=== PATIENT | female | born 1990 | race Caucasian/White ===

== ENCOUNTER 2017-06-29 18:24 | Emergency (ER) | payer OTHER ==
--- NOTE | 2017-06-29 19:23 | EDPHY ---
H & P Time Seen by Provider: 06/29/17 18:55 HPI/ROS: CHIEF COMPLAINT: History of tick bite, myalgias, rash HISTORY OF PRESENT ILLNESS: 27-year-old female presents to the emergency department by private vehicle complaining of myalgias, rash to her lower extremities and swollen fingers. The patient states on 06/12/2017 she was bit by a tick to the left side of her neck. He she removed the tick on her own. Over last few days she has noticed generalized myalgias, swollen fingers and rash. She states the rash initially started on her feet and has progressed ascending up to about mid thighs. No fevers or chills. No nausea or vomiting. No headache. No chest pain or difficulty breathing. REVIEW OF SYSTEMS: Constitutional: No fever, no chills. Eyes: No double or blurry vision. ENT: No sore throat. Respiratory: No cough, no shortness of breath. Cardiac: No chest pain. Gastrointestinal: No abdominal pain, vomiting or diarrhea. Genitourinary: No dysuria. Musculoskeletal: No neck or back pain. Skin: Rash as above Neurological: No headache. 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 Afebrile. Nontoxic appearing. Eyes: Pupils equal and round. Extraocular motions are all intact. ENT: Mouth: Mucous membranes moist. Respiratory: No wheezing, rhonchi, or rales, lungs are clear to auscultation. Cardiovascular: Regular rate and rhythm. Gastrointestinal: Abdomen is soft and nontender, no masses, no rebound or guarding, bowel sounds normal. Neurological: Alert and oriented x 3, cranial nerves II through XII grossly intact Skin: Erythematous, vasculitic looking rash to the lower extremities. Does not dewayne to the touch. No urticaria noted. No vesicles. Nontender to palpate. Musculoskeletal: Nontender to palpate along the cervical, thoracic or lumbar spine. Neck is supple. Extremities: Full range of motion and no peripheral edema. Her fingers at PIP and D IP joints are slightly swollen. They are not erythematous. No signs of cellulitis. Psychiatric: Patient is oriented X 3, there is no agitation. Constitutional: Initial Vital Signs Temperature (C) 37.1 C 05/05/18 18:31 Heart Rate 83 06/29/17 18:31 Respiratory Rate 16 06/29/17 18:31 Blood Pressure 126/45 H 06/29/17 18:31 O2 Sat (%) 97 06/29/17 18:31 O2 Delivery Mode Room Air Allergies/Adverse Reactions: acetaminophen [From Vicodin] Allergy (Verified 06/29/17 18:31) hydrocodone [From Vicodin] Allergy (Verified 06/29/17 18:31) Home Medications: Medication Instructions Recorded NK [No Known Home Meds] 06/29/17 Medical Decision Making ED Course/Re-evaluation: 27-year-old female presents to the emergency department with vasculitic type rash, myalgias and swollen fingers. She was bit by a tick about 2 weeks ago. She has not had any travel to the [place] to the [facility]. I did reassure the patient that [place] does not have Lyme disease. I spoke with the on-call infectious disease provider, Dr. Cliff Reeves, who felt like her symptoms were more related to an autoimmune type response. He did not feel that the tick bite is likely related. Case was discussed with Dr. Alek Rosen, secondary supervising physician, who did not directly evaluate the patient but agrees with treatment and plan. CBC, sed rate, and CRP are all within normal limits. Patient was given both primary care referral as well as Rheumatology referral. She was instructed to return to the emergency department if she had any change in symptoms or felt worse in any way. Patient was given Solu-Medrol 125 mg IV in the emergency department. Differential Diagnosis: Including but not limited to tick borne illness, autoimmune response, allergic reaction, vasculitis, anemia - Data Points Laboratory Results: Laboratory Results 06/29/17 20:00 06/29/17 06/29/17 20:00 20:00 WBC 4.02 10^3/uL 10^3/uL (3.80-9.50) RBC 4.22 10^6/uL 10^6/uL (4.18-5.33) Hgb 12.9 g/dL g/dL (12.6-16.3) Hct 37.8 % L % (38.0-47.0) MCV 89.6 fL fL (81.5-99.8) MCH 30.6 pg pg (27.9-34.1) MCHC 34.1 g/dL g/dL (32.4-36.7) RDW 13.1 % % (11.5-15.2) Plt Count 189 10^3/uL 10^3/uL (150-400) MPV 10.5 fL fL (8.7-11.7) Neut % (Auto) 63.5 % % (39.3-74.2) Lymph % (Auto) 22.1 % % (15.0-45.0) [place] % (Auto) 9.2 % % (4.5-13.0) Eos % (Auto) 4.2 % % (0.6-7.6) Baso % (Auto) 0.5 % % (0.3-1.7) Nucleat RBC Rel Count 0.0 % % (0.0-0.2) Absolute Neuts (auto) 2.55 10^3/uL 10^3/uL (1.70-6.50) Absolute Lymphs (auto) 0.89 10^3/uL L 10^3/uL (1.00-3.00) Absolute Monos (auto) 0.37 10^3/uL 10^3/uL (0.30-0.80) Absolute Eos (auto) 0.17 10^3/uL 10^3/uL (0.03-0.40) Absolute Basos (auto) 0.02 10^3/uL 10^3/uL (0.02-0.10) Absolute Nucleated RBC 0.00 10^3/uL 10^3/uL (0-0.01) Immature Gran % 0.5 % % (0.0-1.1) Immature Gran # 0.02 10^3/uL 10^3/uL (0.00-0.10) ESR 2 MM/HR MM/HR (0-20) C-Reactive Protein 8.4 mg/L mg/L (<10.0) Medications Given: Discontinued Medications Methylprednisolone Sodium Succinate (Solu-Medrol) 125 mg IVP EDNOW ONE Stop: 06/29/17 19:51 Last Admin: 06/29/17 19:56 Dose: 125 mg Departure - Departure Disposition: Home, Routine, Self-Care Clinical Impression: Vasculitis limited to skin Arthralgia Qualifiers: Joint pain location: unspecified Qualified Code(s): M25.50 - Pain in unspecified joint Condition: Good Instructions: Acute Rash (ED), Arthralgia (ED) Additional Instructions: Follow-up with primary care provider in paper s[place] as discussed. Return to the emergency department if you have any change in symptoms or if you feel worse in any way. Referrals: Pedro Shafer MD [[facility] [place] - As per Instructions ( Supervisor [employer] in [place]) Reynold Day MD [[facility] [place] - As per Instructions (Primary care provider stone breaker)
[2017-06-29] MEDS ORDERED: methylPREDNISolone SOD SUCC 125 MG/2 ML VIAL ONE (19:47)
[2017-06-29] MEDS ORDERED: methylPREDNISolone SOD SUCC 125 MG/2 ML VIAL IVP ONE (19:50)
[2017-06-29 20:15] LABS: PLATELET COUNT 189 10^3/uL (150-400)
[2017-06-29 21:25] VITALS: BP 116/70
== END 2017-06-29 21:24 | disposition home or self-care (01) ==
DX: L95.9 Vasculitis limited to the skin, unspecified (principal); M25.50 Pain in unspecified joint
CPT/HCPCS: 96374; J2930